=== PATIENT | female | born 1980 ===

== ENCOUNTER 2017-05-01 00:29 | Inpatient (IN) | payer SELFPAY ==
[2017-05-01] MEDS ORDERED: Penicillin G 5 Million Unit Vial IVPB ONE ×2 (00:38)
[2017-05-01] MEDS ORDERED: Lactated Ringer's 1,000 ML IV SCH (00:45)
[2017-05-01 00:52] VITALS: BMI 29.9
[2017-05-01 00:54] LABS: BASO % 0.6 % (0.0-2.0); EOS # 0.1 K/uL (0.0-0.7); EOS % 1.5 % (0.0-4.0); HEMATOCRIT 32.9 % (34.0-47.0); LYMPH % 25.3 % (20.0-40.0); MEAN CELL VOLUME 77.2 fL (81.0-99.0); MEAN CORPUSCULAR HEMOGLOBIN 24.9 pg (27.0-31.0); MEAN CORPUSCULAR HGB CONC 32.3 g/dL (33.0-37.0); MEAN PLATELET VOLUME 10.7 fL (7.2-11.7); MONO # 0.5 K/uL (0.0-0.8); MONO % 6.7 % (0.0-10.0); NRBC % 0.1 % (0.0-2.0); RED CELL DISTRIBUTION WIDTH 17.5 % (11.5-14.5); WHITE BLOOD COUNT 7.8 K/uL (4.8-10.8)
--- NOTE | 2017-05-01 01:00 | OBHP ---
Datetime: 05/01/2017 00:41 IP Adm Impression: Term, intrauterine ; Active labor; Intact Membranes IP Admit Plan: Admit to unit; Initiate labor protocol IP Admit Plan Other: GBS unknown Admit Comment, IP Provider: 36 yo , LMP unsure, ALEJANDRO 05/17/17, EGA 37w 5d c.o very stron gocnt ractions as of 1899 horus. Onset of contraction earlier in the day. then stronger. (+) AFM; denies LO F, VB. care: [facility]; denies issues. Patient forgot her records at home - GBS unknown P Ob: x 2: 1999, female 6+ lbs. 2006, male, 7 lb - both no complications. 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 . Currently unemployed Fam Hx: Mother alive 60 y.o. - no med issues. Father approx 2011 -cause unknown. P.E.: as above. WD in pain with contractions. Awake, alert, oriented to time, person and place Assessment: 36 y.o. P2012, 37w 5d, active labor. Category tracing. GBS unknown. Clinically stable . Plan: 1) ADmit 2) NPO 3) ADmission labs 4) penicillin 5) Continuous EFM 6) IVFs 7) anticipate vaginal delivery Pelvic Type - PN: Adequate Extremities - PN: Normal Abdomen - PN: Normal Back - PN: Normal Breast - PN: Not Done Lungs - PN: Normal Heart - PN: Normal Thyroid - PN: Not Done Neurologic - PN: Normal HEENT - PN: Normal General - PN: Normal FHR - Baseline A Provider: 140 Contraction Comments Provider: 1-4 Comments, ACOG Physical Exam: Abdomen: Gravid. Firm with contractions All other systems reviewed and are negative EGA AdmitDate IP: 37.5 IP Indication for Induction: Not Applicable IP Chief Complaint: Uterine contractions NICHD Variability Prov Fetus A: Moderate 6-25bpm NICHD Accel Fetus A IP Provider: 10X10 FHR Category Provider Fetus A: Category I NICHD Decel Fetus A IP Provider: None Dilatation, Provider: 7 Effacement, Provider: 80 Station, Provider: 1 Genitourinary Exam: Normal DTRs - PN: Not Done
[2017-05-01 01:08] LABS: ALB/GLOB RATIO 0.9 (1.0-2.1); ALKALINE PHOSPHATASE 176 U/L (38-126); ALT/SGPT 27 U/L (9-52); AST/SGOT 36 U/L (14-36); BILIRUBIN,TOTAL 0.9 mg/dL (0.2-1.3); BLOOD UREA NITROGEN 13 mg/dL (7-17); CARBON DIOXIDE 18 mmol/L (22-30); CHLORIDE 104 mmol/L (98-107); GFR AFRICAN-AMERICAN > 60; GLUCOSE,RANDOM 89 mg/dL (65-105); POTASSIUM 5.2 mmol/L (3.6-5.2); SODIUM 133 mmol/L (132-148); TOTAL PROTEIN 7.4 g/dL (6.3-8.3)
[2017-05-01] MEDS ORDERED: Lidocaine 2% Inj (20ml) ONE (03:19)
[2017-05-01] MEDS ORDERED: Benzocaine/Menthol 20%-0.5% Topical Spray (60 ml) TOP PRN (03:47)
[2017-05-01] MEDS ORDERED: Oxycodone/Acetaminophen 5/325 mg Tab PO PRN (03:47)
--- NOTE | 2017-05-01 03:55 | OBDS ---
DELIVERY PERSONNEL Delivery Doctor: Linden Kate MD Scrub Nurse: Christine Kilgore Spray Painter: Diane Moore RN MATERNAL INFORMATION Delivery Anesthesia: None Medications in Delivery: pitocin 20 units Estimated Blood Loss (ml): 500 Placenta Cultured: No Maternal Complications: None RN Comments: to a live baby girl with 9-9 Provider Comments: Uncomplicated vaginal delivery live female MEKHI positoin, weight 7lb 3oz, A pgar's 05/08. Spontaneous delivery of placenta - grossly intact; 3 vessel cord. Cervix, vagina, perineum inspected - laceration as above noted and repaired as above. patient tolerated procedure well; bonding with infant. LABOR SUMMARY EDC: 05/17/2017 00:00 No. Babies in Womb: 1 Attempted: No Labor Anesthesia: None LABOR INFORMATION Reason for Induction: Not Applicable Onset of Labor: 04/30/2017 19:00 Complete Dilatation: 05/01/2017 02:55 Oxytocin: N/A Group B Beta Strep: Done, Result Unknown Antibiotics # of Doses: 1 Antibiotics Time of Last Dose: 0040 Steroids Given: None Reason Steroids Not Administered: Not Applicable MEMBRANES Membranes Rupture Method: Spontaneous Rupture of Membranes: 05/01/2017 02:55 Length of Rupture (hrs): 0.20 Amniotic Fluid Color: Clear Amniotic Fluid Amount: Moderate Amniotic Fluid Odor: Normal STAGES OF LABOR Stage 1 hrs: 7 Stage 1 min: 55 Stage 2 hrs: 0 Stage 2 min: 12 Stage 3 hrs: 0 Stage 3 min: 4 Total Time in Labor hrs: 8 Total Time in Labor min: 11 VAGINAL DELIVERY Episiotomy: None Laceration Extension: Second Degree Laceration Type: Perineal Laceration Repair: Yes Laceration Repair Note: 2-0 chromic, in routine fashion Hemostasis assured. Patient tolerated procedure well Initial Vag Sponge Count: 10 Final Vag Sponge Count: 10 Initial Vag Sharps Count: 1 Final Vag Sharps Count: 1 Sponge Count Correct: Yes; Vaginal Sweep Performed Sharps Count Correct: Yes Count Comment: Correct BABY A INFORMATION Delivery Date/Time: 05/01/2017 03:07 Method of Delivery: Vaginal Born in Route : No : N/A Forceps: N/A Vacuum Extraction: N/A Shoulder Dystocia : No SHOULDER DYSTOCIA BABY A Infant Delivery Date/Time: 05/01/2017 03:07 PRESENTATION/POSITION BABY A Presentation: Cephalic Cephalic Presentation: Vertex Vertex Position: Right Occipital Anterior Breech Presentation: N/A PLACENTA INFORMATION BABY A Placenta Delivery Time : 05/01/2017 03:11 Placenta Method of Delivery: Spontaneous Placenta Status: Delivered SCORES BABY A Heart Rate 1 min: >100 bpm Resp Effort 1 min: Good Cry Reflex Irritability 1 min: Cough or Sneeze or Pulls Away Muscle Tone 1 min: Active Motion Color 1 min: Body [place], Extremities Blue SCORE 1 MIN: 9 Heart Rate 5 min: >100 bpm Resp Effort 5 min: Good Cry Reflex Irritability 5 min: Cough or Sneeze or Pulls Away Muscle Tone 5 min: Active Motion Color 5 min: Body [place], Extremities Blue SCORE 5 MIN: 9 INFANT INFORMATION BABY A Gestational Age at Delivery: 37.5 Gestational Status: Term Infant Outcome : Liveborn Infant Condition : Stable Sex: Female IDENTIFICATION/MEDS BABY A ID Band Number: [id number] ID Band Location: Left Leg; Left Arm Sensor Applied: Yes Sensor Number: [id number] Sensor Location : Cord Clamp WEIGHT/LENGTH BABY A Birthweight (gms): 3260 Infant Weight (lb): 7 Infant Weight (oz): 3 Length Inches: 19.00 Infant Length cms: 48.3 CORD INFORMATION BABY A No. Cord Vessels: 3 Nuchal Cord : N/A Cord Blood Taken: N/A Suction: None ASSESSMENT BABY A Infant Complications: None Physical Findings at Delivery: Within Normal Limits Physical Findings Other: T=97.8 IA=065 RR=60 Respirations: Appears Normal Peat Shredder Tender/ALS Called : No Care By: Dr. Bourne Transferred To: Remains with Mother
[2017-05-01 04:02] LABS: RBC URINE 1 /hpf (0-3); URINE BILIRUBIN NEGATIVE (NEGATIVE); URINE BLOOD NEGATIVE (NEGATIVE); URINE COLOR Yellow (YELLOW); URINE GLUCOSE (UA) NORMAL (Normal); URINE KETONE NEGATIVE (NEGATIVE); URINE LEUKOCYTE ESTERASE NEG Leu/uL (Negative); URINE PROTEIN NEGATIVE (NEGATIVE); URINE UROBILINOGEN NORMAL mg/dL (0.2-1.0); WBC URINE < 1 /hpf (0-5)
[2017-05-01] MEDS ORDERED: Penicillin G Potassium 2.5 MU in Dextrose 5% In Water 50 ML IV SCH (04:45)
[2017-05-01] MEDS ORDERED: Oxycodone/Acetaminophen 5/325 mg Tab ONE (05:11)
[2017-05-01 08:07] LABS: HEMATOCRIT 31.3 % (34.0-47.0); MEAN CORPUSCULAR HEMOGLOBIN 24.5 pg (27.0-31.0); MEAN CORPUSCULAR HGB CONC 31.8 g/dL (33.0-37.0); MEAN PLATELET VOLUME 10.5 fL (7.2-11.7); RED CELL DISTRIBUTION WIDTH 17.9 % (11.5-14.5)
[2017-05-01 08:28] LABS: WHITE BLOOD COUNT 14.1 K/uL (4.8-10.8)
[2017-05-01] MEDS: Multiple Vitamins Tab PO SCH (09:42)
[2017-05-01 18:13] LABS: RAPID PLASMA REAGIN NONREACTIVE (NONREACTIVE)
[2017-05-01] MEDS: Oxycodone/Acetaminophen 5/325 mg Tab PO PRN (20:44)
[2017-05-02] MEDS: Multiple Vitamins Tab PO SCH (10:07)
--- NOTE | 2017-05-02 11:20 | OBPPN ---
Datetime: 05/02/2017 11:19 PP Pain Prov: Within normal limits PP Nausea Prov: Denies PP Flatus Prov: Yes PP BM Prov: No PP Breasts Prov: Normal PP Heart Prov: Normal PP Lungs Prov: Normal PP Abdomen/Uterus Prov: Normal PP Lochia Prov: Normal PP Vulva/Perineum Prov: Normal PP CVA Tenderness Prov: Normal PP Extremities Prov: Normal PP C/S Incision Prov: Normal PP Progress Prov: Normal PP Impression Prov: Normal progression PP Plan Prov: Continue present management PP Progress Note Prov: Pt seen and examined and reports pain is controlled with medication. Pt repor ts ambuating, voiding, passing flatus, no BM. Pt denies any fever, chills, nausea, vomiting, CP, SOB. lightheadness, dizzyness. Pt is breast and bottle feeding and denies any feelings of sadness or depr ession. VSS PE: GEN: NAD, AAO x 3 BREAST: NT, Non engorged b/l RES: CTAB/l CVS: RRR, +S1/S2 ABD: soft, NT/ND, +BS. No guarding, no reboudn tenderness, no rigidity FUNDUS: Firm, at level of umbiliucs INCISION C/D/I healing well destiny intact VE: Minimal lochia, non fouls smelling EXT: no calf tenderness, negative ana's sign A/P s/p PLTCS POD #1 doing well -pain managment -advance diet as tolerated -encourage ambuation with assistance as needed/encourage breat feeding -cont current managment Vital Signs Provider PP: Reviewed; Within Normal Limits
[2017-05-02] MEDS: Oxycodone/Acetaminophen 5/325 mg Tab PO PRN (12:40)
[2017-05-02 16:24] VITALS: O2SAT 99
[2017-05-03 08:38] VITALS: BP 133/77; PULSE 62; RESP 18; TEMP 97.7
[2017-05-03] MEDS: Multiple Vitamins Tab PO SCH (09:09)
--- NOTE | 2017-05-03 10:36 | OBPPN ---
Datetime: 05/03/2017 10:25 PP Pain Prov: Within normal limits PP Nausea Prov: Denies PP Flatus Prov: Yes PP BM Prov: No PP Breasts Prov: Normal PP Heart Prov: Normal PP Lungs Prov: Normal PP Abdomen/Uterus Prov: Normal PP Lochia Prov: Normal PP Vulva/Perineum Prov: Normal PP CVA Tenderness Prov: Normal PP Extremities Prov: Normal PP C/S Incision Prov: Not Applicable PP Progress Prov: Normal PP Comments Phys Exam Prov: Abdomen: Soft, non distended. (+) BS. Fundus firm, mobile, non tender 2 FB below umbilicus. Mild lochia rubra. All other systems reviewed and are negative PP Impression Prov: Normal progression PP Plan Prov: Discharge PP Progress Note Prov: Patient received in room 454, and 17 y.o. daughter present. Breastfee ding. Denies nausea, vomiting; ambulating and voiding without difficulty. P.E.: as above. WD in NAD. Awake, alert, oriented to time, person and place. - PPD#1 H/H 06/29.3. Rh(+) Assessment: PPD#2 36 y.o. P3013, S/P . Anemia - asymptomatic and hemodynamically stable. Uns ure re: contraception; options briefly discussed. Clinically stable. Plan: 1) Discharge home 2) See full discharge instructions Vital Signs Provider PP: Reviewed; Within Normal Limits
--- NOTE | 2017-05-03 10:38 | OBDCSUM ---
Datetime: 05/03/2017 08:47 Discharged to, Provider: Home Follow up at, Provider: jannet Ponce Instr Activity: Normal activity; May be up to bathroom; May be up for meals; May Shower Disch Instr Diet: Regular Discharge Instructions, Provider: Routine instructions given Discharge Diagnosis, Provider: Term Delivered Discharge Time: 05/03/2017 11:30 Follow up in weeks, Provider: 6 weeks Disch Referrals: None Contraception discussed, Prov: Yes Disch Activity Restrictions: No lifting; Minimize stair-climbing; No sexual activity; Nothing in vag amauri - Gratis, tampons, douche Discharge Diagnosis Prov Other: Status post vaginal delivery Advanced maternal age Anemia Contraception counseling Contraception after Delivery: Undecided
== END 2017-05-03 11:00 | disposition home or self-care (01) | DRG 775 ==
LOC: C.EROB 00:29 → C.4D 00:31 → C.4M 08:52
PROVIDERS: ADMIT Obstetrics & Gynecology; ATTEND Obstetrics & Gynecology
PROC: 10E0XZZ Delivery of Products of Conception, External Approach (ICD-10-PCS; principal; 2017-05-01)
PROC: 0KQM0ZZ Repair Perineum Muscle, Open Approach (ICD-10-PCS; 2017-05-01)
DX: O99.02 Anemia complicating childbirth (principal); D64.9 Anemia, unspecified; Z37.0 Single live birth; O70.1 Second degree perineal laceration during delivery; Z3A.37 37 weeks gestation of pregnancy

== ENCOUNTER 2018-08-09 15:46 | Emergency (ER) | payer MEDICAID, OTHER ==
[2018-08-09 15:55] VITALS: BMI 27.2
[2018-08-09 16:00] VITALS: BP 126/71; PULSE 62; RESP 18; TEMP 97.6; O2SAT 100
--- NOTE | 2018-08-09 17:03 | C.PDOC ---
History Of Present Illness Patient reports right ear pain for 3 days. Denies any discharge from ear. Hearing has not been affected. No other symptoms including fever. Time Seen by Provider: 08/09/18 16:13 Chief Complaint (Nursing): ENT Problem Past Medical History Reviewed: Historical Data, Nursing Documentation, Vital Signs Vital Signs: Last Vital Signs Temp 97.6 F 08/09/18 16:00 Pulse 62 08/09/18 16:00 Resp 18 08/09/18 16:00 BP 126/71 08/09/18 16:00 Pulse Ox 100 08/09/18 16:00 - Medical History PMH: No Chronic Diseases Denies: Depression, Diabetes, HTN - [facility] Procedures DELIVERY OF PRODUCTS OF CONCEPTION, EXTERNAL APPROACH (05/01/17) REPAIR PERINEUM MUSCLE, OPEN APPROACH (05/01/17) Family History: States: Unknown Family Hx - Social History Hx Alcohol Use: No Hx Substance Use: No - Immunization History Hx Tetanus Toxoid Vaccination: No Hx Influenza Vaccination: No Hx Pneumococcal Vaccination: No Review Of Systems Except As Marked, All Systems Reviewed And Found Negative. Constitutional: Negative for: Fever, Chills ENT: Positive for: Ear Pain. Negative for: Ear Discharge, Nose Congestion, Throat Pain Cardiovascular: Negative for: Chest Pain Respiratory: Negative for: Cough, Shortness of Breath Gastrointestinal: Negative for: Nausea, Vomiting Neurological: Negative for: Weakness Physical Exam - Physical Exam Appears: Well, Non-toxic, No Acute Distress Skin: Normal Color, Warm, Dry Head: Atraumatic Eye(s): bilateral: Normal Inspection Ear(s): Left: Normal, Right: Other (Canal erythematous and swollen, obscuring TM) Throat: Normal Cardiovascular: Rhythm Regular Respiratory: Normal Breath Sounds Gastrointestinal/Abdominal: Normal Exam Extremity: Normal ROM Neurological/Psych: Oriented x3 ED Course And Treatment O2 Sat by Pulse Oximetry: 100 Medical Decision Making Medical Decision Making: Exam consistent with otitis externa. Rx written for ciprofloxacin/hydrocortisone drops. Advised returning to the ED should symptoms worsen. Disposition - Disposition Disposition: HOME/ ROUTINE Disposition Time: 16:50 Condition: STABLE Additional Instructions: JERRI PONCE, thank you for letting us take care of you today. Your provider was Daysi Lewis MD and you were treated for EAR PAIN. The emergency medical care you received today was directed at your acute symptoms. If you were prescribed any medication, please fill it and take as directed. It may take several days for your symptoms to resolve. Return to the Emergency Department if your symptoms worsen, do not improve, or if you have any other problems. Please contact your doctor or call one of the physicians/clinics you have been referred to that are listed on the Patient Visit Information form that is included in your discharge packet. Bring any paperwork you were given at discharge with you along with any medications you are taking to your follow up visit. Our treatment cannot replace ongoing medical care by a primary care provider outside of the emergency department. Thank you for allowing the [facility] team to be part of your care today. If you had an X-Ray or CT scan: A Radiologist will review the ED reading if any change in treatment is needed we will contact you. If you had a blood, urine, or wound culture: It will take several days for the results, if any change in treatment is needed we will contact you. If you had an STI test: It will take 48 hours for the results. Please call after 1 week if you have not heard back. Prescriptions: Ciprofloxacin/Hydrocortisone [Cipro Hc Otic Suspension] 3 drop OT BID 7 Days drops.susp Instructions: Outer Ear Infection (DC) Forms: [employer] (German), Work Excuse Print Language: ROMANIAN - Clinical Impression Clinical Impression: Otitis externa of right ear
== END 2018-08-09 17:01 | disposition home or self-care (01) ==
LOC: C.ER 15:46
DX: H60.91 Unspecified otitis externa, right ear (principal)